=== PATIENT | male | born 1940 | race Caucasian/White ===

== ENCOUNTER 2021-09-05 11:24 | Emergency (ER) | payer MEDICARE, OTHER ==
--- NOTE | 2021-09-05 11:41 | PCM.EKG ---
#1 Interpretation EKG Date: 09/05/21 Time: 11:35 Rhythm: NSR Rate (Beats/Min): 62 ST-T: Normal
--- NOTE | 2021-09-05 13:32 | CR ---
Indication: Chest congestion Comparison: None available. Technique: Single AP view chest Findings: There is hyperinflation and chronic interstitial change. There is minimal left basilar pleural thickening versus pleural effusion. The right hemithorax is clear. The cardiac silhouette is mildly prominent. The bony thorax is grossly intact. Impression: Hyperinflation and chronic interstitial changes with minimal left basilar pleural thickening versus pleural fluid with adjacent compressive atelectasis and/or infiltrates. Dictated by Kaushik Vegas MD @ 09/05/2021 1:30:01 PM (Electronically Signed)
[2021-09-05 13:56] LABS: CARBON DIOXIDE,CO2 23.7 mmol/L (21.0-32.0); POTASSIUM,K 4.6 mmol/L (3.5-5.1)
[2021-09-05] MEDS ORDERED: Aspirin 325 MG Tab PO ONE (14:36)
[2021-09-05] MEDS ORDERED: Heparin Sodium 5,000 Units/ML Vial IVPUSH ONE (14:38)
--- NOTE | 2021-09-05 14:42 | EDM.PDOC ---
ED HPI GENERAL MEDICAL PROBLEM - General Chief Complaint: Respiratory Problem Stated Complaint: FATIGUE/CHEST DISCOMFORT Time Seen by Provider: 09/05/21 12:52 Source of Information: Reports: Patient, Family History Limitations: Reports: Other (Difficulty hearing) - History of Present Illness INITIAL COMMENTS - FREE TEXT/NARRATIVE: Patient is 81-year-old male per neighbor does not go to a doctor regularly presents today for chest pain he had chest pain earlier today but arrival patient is denying chest pain denies any symptoms of sterile brought images to be checked. Patient denies any fever chills nausea vomiting. Patient states that she has not had any other complaints. 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, Urinary Musculoskeletal History: Reports: None Neurological History: Reports: None Psychiatric History: Reports: None Endocrine/Metabolic History: Reports: None Hematologic History: Reports: None Immunologic History: Reports: None Oncologic (Cancer) History: Reports: None Dermatologic History: Reports: None - Infectious Disease History Infectious Disease History: Reports: Chicken Pox - Past Surgical History Head Surgeries/Procedures: Reports: None HEENT Surgical History: Reports: Adenoidectomy, Tonsillectomy, Other (See Below) Other HEENT Surgeries/Procedures: dental surgery Respiratory Surgical History: Reports: None GI Surgical History: Reports: Appendectomy, Hernia, Abdominal Endocrine Surgical History: Reports: None Neurological Surgical History: Reports: None Musculoskeletal Surgical History: Reports: None Dermatological Surgical History: Reports: None Social & Family History - Family History Family Medical History: No Pertinent Family History ED ROS GENERAL - Review of Systems Review Of Systems: See Below Constitutional: Reports: No Symptoms HEENT: Reports: No Symptoms Respiratory: Reports: No Symptoms Cardiovascular: Reports: No Symptoms Endocrine: Reports: No Symptoms GI/Abdominal: Reports: No Symptoms : Reports: No Symptoms Musculoskeletal: Reports: No Symptoms Skin: Reports: No Symptoms Neurological: Reports: No Symptoms Psychiatric: Reports: No Symptoms Hematologic/Lymphatic: Reports: No Symptoms Immunologic: Reports: No Symptoms ED EXAM, GENERAL - Physical Exam Exam: See Below Exam Limited By: No Limitations General Appearance: Alert, WD/WN, No Apparent Distress Eye Exam: Bilateral Eye: EOMI Ears: Normal External Exam, Normal TMs Throat/Mouth: Normal Inspection Head: Atraumatic Respiratory/Chest: No Respiratory Distress, Lungs Clear, Normal Breath Sounds Cardiovascular: Normal Peripheral Pulses, Regular Rate, Rhythm, No Edema GI/Abdominal: Normal Bowel Sounds, Soft, Non-Tender Extremities: Normal Inspection, Normal Range of Motion Neurological: Alert, CN II-XII Intact, Normal Cognition, Normal Gait (Walks with a cane) Course - Vital Signs Last Recorded V/S: Last Vital Signs Temp 97.0 F 09/05/21 13:00 Pulse 59 L 09/05/21 13:00 Resp 18 09/05/21 13:00 BP 131/72 09/05/21 13:00 Pulse Ox 97 09/05/21 13:00 - Orders/Labs/Meds Orders: Active Orders 24 hr Category Date Time Status Cardiac Monitoring [RC] STAT Care 09/05/21 14:37 Ordered Communication Order [RC] PER UNIT ROUTINE Care 09/05/21 14:37 Ordered Communication Order [RC] PER UNIT ROUTINE Care 09/05/21 14:37 Ordered Oxygen Therapy [RC] ASDIRECTED Care 09/05/21 14:37 Ordered INR,PT,PROTHROMBIN TIME [COAG] Stat Lab 09/05/21 14:37 Ordered PTT,PARTIAL THROMBOPLSTIN TIME [COAG] Q6 Lab 09/05/21 14:45 Ordered PTT,PARTIAL THROMBOPLSTIN TIME [COAG] Q6 Lab 09/05/21 20:45 Ordered PTT,PARTIAL THROMBOPLSTIN TIME [COAG] Q6 Lab 09/06/21 02:45 Ordered PTT,PARTIAL THROMBOPLSTIN TIME [COAG] Q6 Lab 09/06/21 08:45 Ordered PTT,PARTIAL THROMBOPLSTIN TIME [COAG] Q6 Lab 09/06/21 14:45 Ordered PTT,PARTIAL THROMBOPLSTIN TIME [COAG] Q6 Lab 09/06/21 20:45 Ordered PTT,PARTIAL THROMBOPLSTIN TIME [COAG] Q6H Lab 09/07/21 02:45 Ordered PTT,PARTIAL THROMBOPLSTIN TIME [COAG] Stat Lab 09/05/21 14:37 Ordered PTT,PARTIAL THROMBOPLSTIN TIME [COAG] Stat Lab 09/05/21 14:39 Ordered Heparin Sodium Med 09/05/21 14:38 Once 4,000 units IVPUSH .BOLUS ONE Heparin Sodium/0.45% NaCl [Heparin 25,000 Units in 1/2 Med 09/05/21 14:45 Ordered NS 500 ML] 500 ml IV TITRATE Heparin Sodium/0.45% NaCl [Heparin 25,000 Units in 1/2 Med 09/05/21 14:45 Ordered NS 500 ML] 500 ml IV TITRATE Medication Orders Heparin Sodium/Sodium Chloride (Heparin 25,000 Units In 1/2 Ns 500 Ml) 500 mls @ 17.418 mls/hr IV TITRATE KRISSY; Protocol Labs: Laboratory Tests 09/05/21 09/05/21 Range/Units 13:13 13:13 WBC 6.21 (4.0-11.0) K/uL RBC 2.97 L (4.50-5.90) M/uL Hgb 9.7 L (13.0-17.0) g/dL Hct 28.9 L (38.0-50.0) % MCV 97.3 (80.0-98.0) fL MCH 32.7 H (27.0-32.0) pg MCHC 33.6 (31.0-37.0) g/dL RDW Std Deviation 60.5 (28.0-62.0) fl RDW Coeff of Laura 17 H (11.0-15.0) % Plt Count 119 L (150-400) K/uL MPV 11.10 (7.40-12.00) fL Neut % (Auto) 55.7 (48.0-80.0) % Lymph % (Auto) 24.2 (16.0-40.0) % Moca % (Auto) 17.4 H (0.0-15.0) % Eos % (Auto) 1.9 (0.0-7.0) % Baso % (Auto) 0.8 (0.0-1.5) % Neut # (Auto) 3.5 (1.4-5.7) K/uL Lymph # (Auto) 1.5 (0.6-2.4) K/uL Moca # (Auto) 1.1 H (0.0-0.8) K/uL Eos # (Auto) 0.1 (0.0-0.7) K/uL Baso # (Auto) 0.1 (0.0-0.1) K/uL Nucleated RBC % 1.0 /100WBC Nucleated RBCs # 0 K/uL Sodium 143 (136-148) mmol/L Potassium 4.6 (3.5-5.1) mmol/L Chloride 110 H (98-107) mmol/L Carbon Dioxide 23.7 (21.0-32.0) mmol/L BUN 37 H (7.0-18.0) mg/dL Creatinine 1.6 H (0.8-1.3) mg/dL Est Cr Clr Drug Dosing 36.54 mL/min Estimated GFR (MDRD) 41.6 ml/min Glucose 94 (74-106) mg/dL Calcium 8.1 L (8.5-10.1) mg/dL Total Bilirubin 1.1 H (0.2-1.0) mg/dL AST 53 H (15-37) IU/L ALT 17 (14-63) IU/L Alkaline Phosphatase 422 H (46-116) U/L Creatine Kinase 115 (26-308) U/L Troponin I 5.371 H* (0.000-0.056) ng/mL Total Protein 6.2 L (6.4-8.2) g/dL Albumin 3.3 L (3.4-5.0) g/dL Globulin 2.9 (2.6-4.0) g/dL Albumin/Globulin Ratio 1.1 (0.9-1.6) Lipase 166 (73-393) U/L Meds: Medications Generic Name Dose Route Start Last Admin Trade Name Freq PRN Reason Stop Dose Admin Heparin Sodium/Sodium Chloride 500 mls @ 17.418 mls/hr 09/05/21 14:45 Heparin 25,000 Units In 1/2 Ns 500 Ml IV TITRATE KRISSY Protocol 12 UNITS/KG/HR Discontinued Medications Generic Name Dose Route Start Last Admin Trade Name Freq PRN Reason Stop Dose Admin Aspirin 325 mg 09/05/21 14:36 Aspirin 325 Mg Tab PO 09/05/21 14:37 ONETIME ONE Departure - Departure Time of Disposition: 14:42 Disposition: Home, Self-Care 01 Condition: Good Clinical Impression: NSTEMI (non-ST elevated myocardial infarction) Referrals: PCP,None [Primary Care Provider] - Critical Care Note - Critical Care Note Total Time (mins): 45 Comments: Critical Care Procedure Note Authorized and Performed by: Dr. Waggoner Total critical care time: Approximately Due to a high probability of clinically significant, life threatening deterioration, the patient required my highest level of preparedness to intervene emergently and I personally spent this critical care time directly and personally managing the patient. This critical care time included obtaining a history; examining the patient; pulse oximetry; ordering and review of studies; arranging urgent treatment with development of a management plan; evaluation of patient's response to treatment; frequent reassessment; and, discussions with other providers. This critical care time was performed to assess and manage the high probability of imminent, life-threatening deterioration that could result in multi-organ failure. It was exclusive of separately billable procedures and treating other patients and teaching time. Sepsis Event Note (ED) - Evaluation Sepsis Screening Result: No Definite Risk - Focused Exam Vital Signs: Vital Signs Temp Pulse Resp BP Pulse Ox 09/05/21 13:00 97.0 F 59 L 18 131/72 97 - My Orders Last 24 Hours: My Active Orders 09/05/21 14:37 Cardiac Monitoring [RC] STAT Communication Order [RC] PER UNIT ROUTINE Communication Order [RC] PER UNIT ROUTINE Oxygen Therapy [RC] ASDIRECTED INR,PT,PROTHROMBIN TIME [COAG] Stat PTT,PARTIAL THROMBOPLSTIN TIME [COAG] Stat 09/05/21 14:38 Heparin Sodium 4,000 units IVPUSH .BOLUS ONE 09/05/21 14:39 PTT,PARTIAL THROMBOPLSTIN TIME [COAG] Stat 09/05/21 14:45 PTT,PARTIAL THROMBOPLSTIN TIME [COAG] Q6H Heparin Sodium/0.45% NaCl [Heparin 25,000 Units in 1/2 NS 500 ML] 500 ml IV TITRATE Heparin Sodium/0.45% NaCl [Heparin 25,000 Units in 1/2 NS 500 ML] 500 ml IV TITRATE 09/05/21 20:45 PTT,PARTIAL THROMBOPLSTIN TIME [COAG] Q6H 09/06/21 02:45 PTT,PARTIAL THROMBOPLSTIN TIME [COAG] Q6H 09/06/21 08:45 PTT,PARTIAL THROMBOPLSTIN TIME [COAG] Q6H 09/06/21 14:45 PTT,PARTIAL THROMBOPLSTIN TIME [COAG] Q6H 09/06/21 20:45 PTT,PARTIAL THROMBOPLSTIN TIME [COAG] Q6H 09/07/21 02:45 PTT,PARTIAL THROMBOPLSTIN TIME [COAG] Q6H - Assessment/Plan Last 24 Hours: My Active Orders 09/05/21 14:37 Cardiac Monitoring [RC] STAT Communication Order [RC] PER UNIT ROUTINE Communication Order [RC] PER UNIT ROUTINE Oxygen Therapy [RC] ASDIRECTED INR,PT,PROTHROMBIN TIME [COAG] Stat PTT,PARTIAL THROMBOPLSTIN TIME [COAG] Stat 09/05/21 14:38 Heparin Sodium 4,000 units IVPUSH .BOLUS ONE 09/05/21 14:39 PTT,PARTIAL THROMBOPLSTIN TIME [COAG] Stat 09/05/21 14:45 PTT,PARTIAL THROMBOPLSTIN TIME [COAG] Q6H Heparin Sodium/0.45% NaCl [Heparin 25,000 Units in 1/2 NS 500 ML] 500 ml IV TITRATE Heparin Sodium/0.45% NaCl [Heparin 25,000 Units in 1/2 NS 500 ML] 500 ml IV TITRATE 09/05/21 20:45 PTT,PARTIAL THROMBOPLSTIN TIME [COAG] Q6H 09/06/21 02:45 PTT,PARTIAL THROMBOPLSTIN TIME [COAG] Q6H 09/06/21 08:45 PTT,PARTIAL THROMBOPLSTIN TIME [COAG] Q6H 09/06/21 14:45 PTT,PARTIAL THROMBOPLSTIN TIME [COAG] Q6H 09/06/21 20:45 PTT,PARTIAL THROMBOPLSTIN TIME [COAG] Q6H 09/07/21 02:45 PTT,PARTIAL THROMBOPLSTIN TIME [COAG] Q6H Plan: Patient is a 81-year-old male presents today for chest pain earlier patient currently has no chest pain on exam. Patient EKG sinus rhythm not show any ST elevation but he has an elevated troponin patient will be started on heparin and transferred over to [place] for further care and cardiology follow-up.
[2021-09-05] MEDS ORDERED: Heparin Sodium/0.45% NaCl 500 ML IV SCH ×2 (14:45)
[2021-09-05 16:10] VITALS: BP 177/74; PULSE 57
== END 2021-09-05 16:11 ==
LOC: MW.ED 11:24
DX: I21.4 Non-ST elevation (NSTEMI) myocardial infarction (principal); Z88.0 Allergy status to penicillin; Z88.2 Allergy status to sulfonamides
CPT/HCPCS: 36415; 71045; 80053; 82550; 83690; 84484; 85025; 85610; 85730; 96365; 99285; A9270; J1644; U0002